=== PATIENT | female | born 1955 | race American Indian/Alaskan Native ===

== ENCOUNTER 2020-01-22 15:22 | Emergency (ER) | payer OTHER ==
[2020-01-22] MEDS ORDERED: IBUPROFEN 600 MG TAB PO ONE (16:39)
--- NOTE | 2020-01-22 16:44 | Emergency Department Report ---
ED Eye Problem HPI - General Chief complaint: Eye Problems Stated complaint: NAIL GLUE IN EYE Time Seen by Provider: 01/22/20 16:39 Source: patient Mode of arrival: Ambulatory Limitations: No Limitations - History of Present Illness Initial comments: The patient was evaluated in the emergency department for symptoms described in the history of present illness. He/she was evaluated in the context of the global COVID-19 pandemic, which necessitated consideration that the patient might be at risk for infection with the virus that causes COVID-19. Ins titutional protocols and algorithms that pertain to the evaluation of patients at risk for COVID-19 are in a state of rapid change based on information released by regulatory bodies including the CDC and federal and state organizations. These policies and algorithms were followed during the patient's care in the emergency department. Please note that these policies, procedures and recommendations changed on a rapid basis. 64-year-old -[place] female presents to the emergency room stating she accidentally use glue in her left eye thinking she was using eyedrops. She complains of severe pain. Patient has no other complaints. Has no past medical history takes no medications on a daily basis and is allergic to penicillin. chief complaint: eye pain, eye injury -: This afternoon Onset Description: sudden Location: left eye Place: home Eye Symptoms: burning, pain Severity: severe Severity scale (0 -10): 10 If Pain, Quality: sharp, burning, throbbing Consistency: constant Context: other (Eyelash glue in left eye) - Related Data Previous Rx's Medication Instructions Recorded Last Taken Type Erythromycin [Erythromycin Ophth 1 strip OS Q2H 10 Days #1 tube 01/22/20 Unknown Rx Oint] Ibuprofen [Motrin 600 MG tab] 600 mg PO Q8H PRN #30 tablet 01/22/20 Unknown Rx Allergies Allergy/AdvReac Type Severity Reaction Status Date / Time Penicillins Allergy Rash Verified 07/06/13 13:25 ED Review of Systems ROS: Stated complaint: NAIL GLUE IN EYE Other details as noted in HPI Comment: All other systems reviewed and negative ED Past Medical Hx - Past Medical History Previous Medical History?: Yes - Surgical History Additional Surgical History: - Social History Smoking Status: Current Every Day Smoker - Medications Home Medications: Home Medications Medication Instructions Recorded Confirmed Last Taken Type Erythromycin [Erythromycin Ophth 1 strip OS Q2H 10 Days #1 tube 01/22/20 Unknown Rx Oint] Ibuprofen [Motrin 600 MG tab] 600 mg PO Q8H PRN #30 tablet 01/22/20 Unknown Rx ED Physical Exam - General Limitations: No Limitations General appearance: alert, other (Appears to be uncomfortable) - Head Head exam: Present: atraumatic, normocephalic - Eye Eye exam: Present: periorbital swelling (Left eye), other (Eyelid glued shut) - ENT ENT exam: Present: mucous membranes moist - Respiratory Respiratory exam: Absent: accessory muscle use - Extremities Exam Extremities exam: Present: normal inspection, full ROM - Back Exam Back exam: Present: normal inspection, full ROM - Neurological Exam Neurological exam: Present: alert, oriented X3 - Psychiatric Psychiatric exam: Present: normal affect, normal mood - Skin Skin exam: Present: warm, dry, intact, normal color. Absent: rash ED Course Vital Signs 01/22/20 15:35 Temperature 98 F Pulse Rate 89 Respiratory 18 Rate Blood Pressure 144/63 O2 Sat by Pulse 100 Oximetry ED Medical Decision Making - Medical Decision Making 64-year-old -[place] female presents to the emergency room stating she accidentally use glue in her left eye thinking she was using eyedrops. She complains of severe pain. Patient has no other complaints. Has no past medical history takes no medications on a daily basis and is allergic to penicillin. Starting to use acetone nail pads to left eye to weaken the glue. After will flush the eye with normal saline and use a phizine test to check the pH. Will cover patient with antibiotics and pain medication. Dr. Portillo attending ER physician came over and evaluated patient was able to pull apart patient eyelid. Instructed to do Remigio lens and check pH. pH was checked by this provider which was 7. Patient has fluorescein uptake at around 6:00. Consulted with Dr. Kwame Lafleur who recommends erythromycin every 2 hours while awake ibuprofen for pain and follow-up with an client technologies specialist tomorrow. Critical care attestation.: If time is entered above; I have spent that time in minutes in the direct care of this critically ill patient, excluding procedure time. ED Disposition Clinical Impression: Corneal abrasion, left Qualifiers: Encounter type: initial encounter Qualified Code(s): S05.02XA - Injury of conjunctiva and corneal abrasion without foreign body, left eye, initial encounter Disposition: DC-01 TO HOME OR SELFCARE Is pt being admited?: No Does the pt Need Aspirin: No Condition: Stable Instructions: Corneal Abrasion (ED) Additional Instructions: Please use erythromycin ophthalmic ointment every 2 hours while awake. Take your ibuprofen every 6-8 hours as needed for pain. It is very very important for you to follow-up with an client technologies specialist the next 24 hours. I have listed several below for your convenience. You are able to find an client technologies specialist on your own that can get you in within 24 hours. Prescriptions: Erythromycin [Erythromycin Ophth Oint] 1 strip OS Q2H 10 Days #1 tube Ibuprofen [Motrin 600 MG tab] 600 mg PO Q8H PRN #30 tablet PRN Reason: Pain Referrals: PRIMARY CAREMD [Primary Care Provider] - 3-5 Days DUANE PORTILLO MD [Staff Physician] - 3-5 Days [facility] [Provider Group] - 3-5 Days [facility] [Provider Group] - 3-5 Days Forms: Work/School Release Form(ED)
[2020-01-22] MEDS ORDERED: SODIUM CHLORIDE 0.9% 1000 ML 1,000 ML IV ONE (18:57)
[2020-01-22] MEDS ORDERED: SODIUM CHLORIDE 0.9% 1000 ML 1,000 ML ONE (18:58)
[2020-01-22] MEDS ORDERED: FLUORESCEIN 1 MG STRIP OP ONE (19:29)
[2020-01-22] MEDS ORDERED: DIPHtheria,PERTUSSIS(ACELL),TETANUS VACCINE/PF 0.5 ML VIAL IM ONE (20:02)
[2020-01-22 22:06] VITALS: BP 124/88
== END 2020-01-22 20:15 | disposition home or self-care (01) ==
LOC: ED 15:22
DX: S05.02XA Injury of conjunctiva and corneal abrasion without foreign body, left eye, initial encounter (principal); F17.200 Nicotine dependence, unspecified, uncomplicated; Z98.890 Other specified postprocedural states; Z79.1 Long term (current) use of non-steroidal anti-inflammatories (NSAID); Z79.2 Long term (current) use of antibiotics; Z88.0 Allergy status to penicillin; X58.XXXA Exposure to other specified factors, initial encounter; Y93.89 Activity, other specified; Y92.89 Other specified places as the place of occurrence of the external cause; Y99.8 Other external cause status
CPT/HCPCS: 90471; 90715; 96360; 99283; J7030